=== PATIENT | female | born 2000 | race Caucasian/White ===

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

== ENCOUNTER 2021-07-12 16:44 | Emergency (ER) | payer OTHER ==
[2021-07-12 17:03] VITALS: BP 107/59; PULSE 134; TEMP 103; BMI 40.3
[2021-07-12] MEDS ORDERED: ACETAMINOPHEN 500 MG TABLET (FP) PO ONE (17:28)
[2021-07-12] MEDS ORDERED: ACETAMINOPHEN 500 MG TABLET (FP) ONE (17:28)
[2021-07-12] MEDS ORDERED: DEXAMETHASONE LIQUID 0.5 MG/5 ML PO ONE (18:38)
[2021-07-12] MEDS ORDERED: DEXAMETHASONE SOD PHOSPHATE 10 MG/1 ML VIAL ONE (18:40)
[2021-07-13 16:10] LABS: SARS-CoV-2 NAA Not Detected (Not Detected)
== END 2021-07-12 18:48 | disposition home or self-care (01) ==
LOC: JERFT 16:44
DX: R50.9 Fever, unspecified (principal); J02.9 Acute pharyngitis, unspecified; J03.90 Acute tonsillitis, unspecified
CPT/HCPCS: 87651; 87804; 99283-25; C9803-CS; U0003; U0005

== ENCOUNTER 2022-01-02 14:58 | Emergency (ER) | payer OTHER ==
[2022-01-02 15:07] VITALS: BP 125/74; PULSE 121; RESP 20; TEMP 98.1; BMI 41.5
== END 2022-01-02 16:30 | disposition home or self-care (01) ==
LOC: JER 14:58
DX: H66.93 Otitis media, unspecified, bilateral (principal)
CPT/HCPCS: 99281-25

== ENCOUNTER 2022-02-07 16:55 | Emergency (ER) | payer OTHER ==
[2022-02-07 17:02] VITALS: BP 118/84; PULSE 104; RESP 18; TEMP 98.2; BMI 41.5
[2022-02-07] MEDS ORDERED: SODIUM CHLORIDE 0.9% 500 ML INFUS.BAG IV ONE (17:55)
[2022-02-07] MEDS ORDERED: ONDANSETRON 4 MG/2 ML VIAL IVPUSH ONE (17:55)
[2022-02-07 18:55] LABS: BASO % 0.2 % (0-2.0); EOS % 1.2 % (0-4.5); HEMATOCRIT 44.3 % (32.4-45.2); HEMOGLOBIN 15.1 GM/dL (10.7-15.3); LYMPH % 19.1 % (8-40); MCH 28.6 pg (25.7-33.7); MCHC 34.1 g/dl (32.0-36.0); MEAN CELL VOLUME 83.9 fl (80-96); MEAN PLT VOLUME 7.8 fl (7.5-11.1); MONO % 5.9 % (3.8-10.2); NEUT % 73.6 % (42.8-82.8); PLATELET COUNT 498 10^3/uL (134-434); RBC 5.28 M/mm3 (3.60-5.2); RDW 14.3 % (11.6-15.6); WHITE BLOOD COUNT 9.6 K/mm3 (4.0-10.0)
[2022-02-07 19:10] LABS: BLOOD UREA NITROGEN 13.3 mg/dL (7-18); CALCIUM 9.4 mg/dL (8.5-10.1)
[2022-02-07 19:13] LABS: CREATININE 0.8 mg/dL (0.55-1.3)
== END 2022-02-07 20:15 | disposition home or self-care (01) ==
LOC: JER 16:55
PROC: 3E033GC Introduction of Other Therapeutic Substance into Peripheral Vein, Percutaneous Approach (ICD-10-PCS; principal; 2022-02-07)
DX: K52.9 Noninfective gastroenteritis and colitis, unspecified (principal)
CPT/HCPCS: 36415; 80048; 83690; 85025; 99284-25

== ENCOUNTER 2022-07-10 18:42 | Emergency (ER) | payer OTHER ==
[2022-07-10 18:49] VITALS: RESP 18; TEMP 98.2; BMI 39.9
[2022-07-10] MEDS ORDERED: FAMOTIDINE 20 MG/50 ML IVPB 20 MG/50 ML MG IVPB ONE (19:42)
[2022-07-10] MEDS ORDERED: SODIUM CHLORIDE 1,000 ML IV STA (19:42)
[2022-07-10] MEDS ORDERED: ACETAMINOPHEN 1000 MG/100 ML BAG IVPB ONE (19:43)
[2022-07-10] MEDS ORDERED: ONDANSETRON 4 MG/2 ML VIAL IVPUSH ONE (19:56)
[2022-07-10] MEDS ORDERED: ACETAMINOPHEN INJECTION 100 ML IVPB ONE (19:58)
[2022-07-10] MEDS ORDERED: ONDANSETRON 4 MG/2 ML VIAL ONE (19:58)
[2022-07-10] MEDS ORDERED: FAMOTIDINE 10 MG/ML VIAL IVPB ONE (19:58)
[2022-07-10 20:31] LABS: BASO % 0.4 % (0-2.0); EOS % 2.6 % (0-4.5); HEMATOCRIT 41.1 % (32.4-45.2); HEMOGLOBIN 13.7 GM/dL (10.7-15.3); LYMPH % 25.8 % (8-40); MCH 27.1 pg (25.7-33.7); MCHC 33.3 g/dl (32.0-36.0); MEAN CELL VOLUME 81.5 fl (80-96); MEAN PLT VOLUME 7.8 fl (7.5-11.1); MONO % 7.4 % (3.8-10.2); NEUT % 63.8 % (42.8-82.8); PLATELET COUNT 581 10^3/uL (134-434); RBC 5.05 M/mm3 (3.60-5.2); WHITE BLOOD COUNT 10.1 K/mm3 (4.0-10.0)
[2022-07-10 22:05] LABS: CALCIUM 8.2 mg/dL (8.5-10.1)
[2022-07-10 22:07] LABS: ALBUMIN 2.8 g/dl (3.4-5.0); BLOOD UREA NITROGEN 14.7 mg/dL (7-18)
[2022-07-10 22:09] LABS: CREATININE 0.9 mg/dL (0.55-1.3)
[2022-07-10 22:10] LABS: BILIRUBIN,TOTAL 0.5 mg/dL (0.2-1)
[2022-07-10 22:42] VITALS: BP 110/67; PULSE 95
== END 2022-07-10 22:58 | disposition home or self-care (01) ==
LOC: JER 18:42
PROC: 3E033GC Introduction of Other Therapeutic Substance into Peripheral Vein, Percutaneous Approach (ICD-10-PCS; principal; 2022-07-10)
DX: A08.4 Viral intestinal infection, unspecified (principal)
CPT/HCPCS: 0241U-QW; 36415; 80053; 82010; 82962; 83690; 84703; 85025; 93005; 93010; 99284-25

== ENCOUNTER 2023-01-21 10:09 | Emergency (ER) | payer OTHER ==
[2023-01-21 10:16] VITALS: BP 123/80; RESP 20; TEMP 98.9; BMI 41.5
[2023-01-21] MEDS ORDERED: ACETAMINOPHEN 500 MG TABLET (FP) PO ONE (10:50)
[2023-01-21] MEDS ORDERED: ALBUTEROL SO4 0.083% IH SOL 2.5 MG/3 ML VIAL.NEB. NEB ONE (10:51)
[2023-01-21] MEDS ORDERED: ACETAMINOPHEN 500 MG TABLET (FP) ONE (11:42)
[2023-01-21 13:58] VITALS: PULSE 88
== END 2023-01-21 14:01 | disposition home or self-care (01) ==
LOC: JERFT 10:09
DX: R05.9 Cough, unspecified (principal); J02.9 Acute pharyngitis, unspecified; R09.81 Nasal congestion; R00.0 Tachycardia, unspecified; J06.9 Acute upper respiratory infection, unspecified; B97.4 Respiratory syncytial virus as the cause of diseases classified elsewhere; R09.3 Abnormal sputum; Z20.822 Contact with and (suspected) exposure to COVID-19
CPT/HCPCS: 0241U-QW; 93005; 93010; 99284-25